=== PATIENT | male | born 1995 | race Caucasian/White ===

== ENCOUNTER 2020-11-29 12:46 | Emergency (ER) | payer MEDICAID ==
[~2020-11-29] VITALS: Ht 177.8 cm; Wt 67.6 kg
[2020-11-29 12:52] VITALS: BP 161/96
--- NOTE | 2020-11-29 13:04 | NUR ---
DEE. HANDED ON URINE CUP.
--- NOTE | 2020-11-29 13:14 | NUR ---
PER ERMD 12 LEAD WAS DONE AND CAME BACK SINUS TACHYCARDIA AT 109 HR
[2020-11-29] MEDS ORDERED: ONDANSETRON 4 MG/2 ML VIAL IVP ONE (15:15)
[2020-11-29] MEDS ORDERED: NACL 0.9% 1,000 ML IV ONE (15:15)
[2020-11-29] MEDS ORDERED: ALUMINUM HYD/MAG/SIMETHICONE 30 ML UDC PO ONE (15:15)
[2020-11-29 15:19] LABS: BASOPHILS % (AUTO) 0.2 % (0.0-2.0); HEMATOCRIT 47.3 % (36-52); HEMOGLOBIN 16.4 g/dL (12.0-18.0); LYMPHOCYTES # (AUTO) 0.8 K/uL (2.0-11.5); MEAN CORPUSCULAR HEMOGLOBIN 32 pg (27-31); MEAN CORPUSCULAR HGB CONC 35 g/dL (33-37); MEAN CORPUSCULAR VOLUME 93.6 fL (80-94); MONOCYTES # (AUTO) 0.6 K/uL (0.8-1.0); MONOCYTES % (AUTO) 6.3 % (1.7-9.3); NEUTROPHILS % (AUTO) 85.5 % (42.2-75.2); PLATELET COUNT (AUTO) 297 K/uL (140-450); RED BLOOD CELL COUNT(AUTO) 5.06 MIL/uL (4.20-6.10); WHITE BLOOD COUNT (AUTO) 9.4 K/uL (4.8-10.8)
--- NOTE | 2020-11-29 15:25 | NUR ---
Patient ambulated to bed 07 with steady/even gait.
--- NOTE | 2020-11-29 15:25 | NUR ---
25 y/o M BIB self from home c/o chest pain and epigastric pain for 2-3 days. Patient A&Ox4, ambulatory, states he began experiencing chest pain, epigastric pain, loss of appetite, nausea and diarrhea. Patient states 1-2 episodes of diarrhea for the past two days. Patient states recent stressors of financial issues and reports he woke up this morning with the chest pain. Patient denies fever, chills, headache, dizziness, blurry vision, SOB. Pt reports 9/10, dull/intermittent, non-radiating pain to his sternal. States "I think this is anxiety. I feel really anxious." Lung sounds CTA. Pt placed onto case monitor with HR 127, BP 155/82, RR @ 10 even/unlabored. Bed locked in lowest position, side rails x 1, call light in reach. PMH/Sx/Meds: Gurvinderies NAYELI
[2020-11-29 15:34] LABS: ALBUMIN 5.1 g/dL (3.4-5.0); ANION GAP 16.5 (8-16); CREATININE 0.8 mg/dL (0.6-1.3); POTASSIUM 3.5 mmol/L (3.5-5.1); TOTAL BILIRUBIN 0.7 mg/dL (0.0-1.0)
--- NOTE | 2020-11-29 16:29 | NUR ---
Patient ambulated to restroom to void
--- NOTE | 2020-11-29 16:35 | NUR ---
Pt back to bed and placed onto engine monitor. All needs met. Bed locked in lowest position, side rails x 1.
--- NOTE | 2020-11-29 17:00 | NUR ---
Dr. Osorio is evaluating patient at bedside.
[2020-11-29] MEDS ORDERED: ONDA-24 SL (17:02)
[2020-11-29] MEDS ORDERED: MAG-27 PO (17:02)
[2020-11-29 17:12] VITALS: BP 126/66
--- NOTE | 2020-11-29 17:12 | NUR ---
Patient discharged with v/s stable. Written and verbal after care instructions given and explained. Patient alert, oriented and verbalized understanding of instructions. Ambulatory with steady gait. All questions addressed prior to discharge. ID band removed. Patient advised to follow up with PMD. Rx of Zofran, Mylanta Max Strength given. Patient educated on indication of medication including possible reaction and side effects. Opportunity to ask questions provided and answered.
== END 2020-11-29 17:12 | disposition home or self-care (01) ==
LOC: MED 12:46
DX: R00.2 Palpitations (principal); K29.70 Gastritis, unspecified, without bleeding; R07.9 Chest pain, unspecified; F12.90 Cannabis use, unspecified, uncomplicated; Z79.899 Other long term (current) drug therapy
CPT/HCPCS: 36415; 71045; 80053; 84484; 85025; 85379; 93005; 96361; 96374; 99285; J2405; J7030

== ENCOUNTER 2021-09-09 12:59 | Emergency (ER) | payer MEDICAID ==
[~2021-09-09] VITALS: Ht 174 cm; Wt 66.7 kg
[~2021-09-09 12:59] MED LIST: MAG-27 PO; ONDA-188 SL
--- NOTE | 2021-09-09 13:14 | NUR ---
pt called, no answer at this time
[2021-09-09 13:34] VITALS: BP 155/86
[2021-09-09] MEDS ORDERED: IBUPROFEN 600 MG TAB PO ONE (13:45)
--- NOTE | 2021-09-09 14:15 | NUR ---
26 y/o male, pt states he fell on left wrist 6 days ago and has had limited rom. pt states he needs work note for today and would like to get it checked. site has no swelling, redness or visible deformity. skin is pink/warm/dry. a&o x4 with even and steady gait. pt denies any fever, cp, sob, or cough at this time. pt states pain is 8/10 at this time. vss. ermd made aware of pt. pmh: denies nka med: denies
--- NOTE | 2021-09-09 15:42 | NUR ---
PT CALLED FOR TX (THUMB SPLINT) WITH NO ANSWER AT 1534. ERMD NOTIFIED
--- NOTE | 2021-09-09 15:52 | NUR ---
pt left without discharge paperwork
--- NOTE | 2021-09-09 16:07 | NUR ---
Patient discharged with v/s stable. Written and verbal after care instructions given and explained. Patient verbalized understanding. Ambulatory with steady gait. All questions addressed prior to discharge. Advised to follow up with PMD.
--- NOTE | 2021-09-09 16:28 | NUR ---
PER PA ORDER, APPLIED PREFABRICATED THUMB SPCA ON THE LEFT HAND. +CMS BEFORE/AFTER. PT DID NOT COMPLAIN OF ANY PAIN OR DISCOMFORT PER THE SPLINT. PA NOTIFIED.
[2021-09-09 16:30] VITALS: BP 155/86
== END 2021-09-09 16:30 | disposition home or self-care (01) ==
LOC: MED 12:59
DX: S62.002A Unspecified fracture of navicular [scaphoid] bone of left wrist, initial encounter for closed fracture (principal); R03.0 Elevated blood-pressure reading, without diagnosis of hypertension; Z79.899 Other long term (current) drug therapy; W01.0XXA Fall on same level from slipping, tripping and stumbling without subsequent striking against object, initial encounter; Y93.89 Activity, other specified; Y92.89 Other specified places as the place of occurrence of the external cause; Y99.8 Other external cause status
CPT/HCPCS: 73110; 99283